=== PATIENT | male | born 1950 | race Caucasian/White ===

== ENCOUNTER 2020-08-06 09:36 | Emergency (ER) | payer OTHER, MEDICARE ==
[~2020-08-06] VITALS: Ht 162.6 cm; Wt 63.5 kg
[2020-08-06] MEDS ORDERED: HYDROCODONE/APAP 10MG-325MG TAB PO NR (10:00)
[2020-08-06] MEDS ORDERED: CLONIDINE HCL 0.1 MG TAB PO NR (10:00)
[2020-08-06] MEDS ORDERED: CLONIDINE HCL 0.1 MG TAB ONE (10:13)
[2020-08-06 13:01] VITALS: BP 183/78
== END 2020-08-06 12:00 | disposition home or self-care (01) ==
LOC: ER 09:45
DX: M79.605 Pain in left leg (principal); I73.9 Peripheral vascular disease, unspecified; I10 Essential (primary) hypertension; E78.5 Hyperlipidemia, unspecified; Z95.1 Presence of aortocoronary bypass graft
CPT/HCPCS: 99282